=== PATIENT | male | born 1980 | race African-American/Black ===

== ENCOUNTER 2017-01-12 13:21 | Emergency (ER) | payer SELFPAY ==
[~2017-01-12] VITALS: Ht 180.3 cm; Wt 80.0 kg
[2017-01-12 13:30] VITALS: BP 118/61; PULSE 94; RESP 15; TEMP 98.3; O2SAT 99
--- NOTE | 2017-01-12 14:54 | PD ---
HPI Chief Complaint: Skin Problem Time Seen by Provider: 14:53 Travel History International Travel<30 days: No Contact w/Intl Traveler<30days: No Traveled to known affect area: No History of Present Illness HPI 36-year-old Afro-[place] male presents the emergency department with tender erythematous somewhat indurated area to the left anterior thigh. 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 Since gotten progressively more tender, erythematous, and warm. The pain is so bad now has difficulty walking. Was described as a 8/10. There is no drainage , fever, chills, or other symptoms. He has no known drug allergies. No history of MRSA in the past. PFSH Past Surgical History Tonsillectomy: Yes (as a child) Social History Alcohol Use: No Tobacco Use: No Substance Use: No Allergies-Medications (Allergen,Severity, Reaction): Coded Allergies: No Known Allergies (Unverified , 01/12/17) Reported Meds & Prescriptions Reported Meds & Active Scripts Active No Active Prescriptions or Reported Medications Review of Systems Except as stated in HPI: all other systems reviewed are Neg General / Constitutional: Positive: Chills, No: Fever Eyes: No: Visual changes HENT: No: Headaches Cardiovascular: No: Chest Pain or Discomfort Respiratory: No: Shortness of Breath Gastrointestinal: No: Abdominal Pain Genitourinary: No: Dysuria Musculoskeletal: No: Pain Skin: Positive Lesions, No Rash Neurologic: No: Weakness Psychiatric: No: Depression Endocrine: No: Polydipsia Hematologic/Lymphatic: No: Easy Bruising Physical Exam Narrative GENERAL: Patient appears in mild distress. SKIN: Warm and dry. Color. Normal turgor. Patient has an area approximately 3 cm diameter of erythema and localized redness and induration. There is no obvious sign of deep abscess or necrotizing fasciitis. There is no streaking or lymphangitis. HEAD: Atraumatic. Normocephalic. EYES: Pupils equal and round. No scleral icterus. No injection or drainage. ENT: No nasal bleeding or discharge. Mucous membranes pink and moist. Pharynx is clear. Airway is patent. NECK: Trachea midline. Supple nontender CARDIOVASCULAR: Regular rate and rhythm. RESPIRATORY: No accessory muscle use. Clear to auscultation. Breath sounds equal bilaterally. MUSCULOSKELETAL: Extremities without clubbing, cyanosis, or edema. No obvious deformities. NEUROLOGICAL: Awake and alert. No obvious cranial nerve deficits. Motor grossly within normal limits. Five out of 5 muscle strength in the arms and legs. Normal speech. PSYCHIATRIC: Appropriate mood and affect; insight and judgment normal. Data Data Last Documented VS Vital Signs Date Time Temp Pulse Resp B/P Pulse Ox O2 Delivery O2 Flow Rate FiO2 01/12/17 13:30 98.3 94 15 118/61 99 Orders Ed Poc Ultrasound (01/12/17 ) Sodium Chloride 0.9% Flush (Ns Flush) (01/12/17 15:00) Ketorolac Inj (Toradol Inj) (01/12/17 15:00) Sulfamet-Trimeth Ds 800-160 Mg (Bactrim (01/12/17 15:00) Ondansetron Inj (Zofran Inj) (01/12/17 15:00) Ketorolac Inj (Toradol Inj) (01/12/17 15:15) Cephalexin (Keflex) (01/12/17 15:15) MDM Medical Decision Making Medical Screen Exam Complete: Yes Emergency Medical Condition: Yes Differential Diagnosis Insect bite. Cellulitis. Allergic reaction. Narrative Course Patient is medically stable at time of exam. Patient is discussed with Dr. Penn and he performs a POC ultrasound was performed on the area showing no obvious abscess or deep tissue infection. Patient is given 60 mg Toradol IM. Patient is given his first dose of Bactrim DS by mouth as well as Keflex 500 mg by mouth. Patient will be continued on Bactrim DS twice a day 7 days as well as Keflex 500 mg 3 times a day 7 days. Patient also given ibuprofen 800 mg 3 times daily with food. Patient can take Tylenol as well as needed. Patient follow with primary care follow-up here if symptoms worsen. Diagnosis Primary Impression: Insect bite of thigh with local reaction Qualified Code: S70.362A - Insect bite of left thigh with local reaction, initial encounter Additional Impression: Insect bite of thigh, left, infected Qualified Code: S70.362A - Infected insect bite of left thigh, initial encounter Referrals: [facility] Primary Care Physician Patient Instructions: Cellulitis (ED), General Instructions, Insect Bite or Sting (ED) Additional Instructions: Patient is given 60 mg Toradol IM. Patient is given his first dose of Bactrim DS by mouth as well as Keflex 500 mg by mouth. Patient will be continued on Bactrim DS twice a day 7 days as well as Keflex 500 mg 3 times a day 7 days. Patient also given ibuprofen 800 mg 3 times daily with food. Patient can take Tylenol as well as needed. Patient follow with primary care follow-up here if symptoms worsen. Med/Other Pt SpecificInfo: Prescription(s) given Scripts Ibuprofen 800 Mg [id number] Mg PO Q8H PRN (Pain/Inflammation) #30 TAB Prov:Martinez Penn MD 01/12/17 Sulfamethoxazole-Trimethoprim (Bactrim DS)800-160 Mg Tab1 Tab PO BID #14 TAB Prov:Martinez Penn MD 01/12/17 Cephalexin (Keflex)500 Mg [id number] Mg PO Q8H #21 CAP Prov:Martinez Penn MD 01/12/17 Disposition: 01 DISCHARGE HOME Condition: Stable Paulo Son Jan 12, 2017 14:54
[2017-01-12] MEDS ORDERED: KETOROLAC TROMETHAMINE 30 MG/ML (IVP) VIAL IVP ONE (15:00)
[2017-01-12] MEDS ORDERED: SULFAMETHOXAZOLE-TRIMETHOPRIM DS 800-160 MG TAB PO ONE (15:00)
[2017-01-12] MEDS ORDERED: ONDANSETRON HCL 4 MG/2 ML VIAL IV PUSH ONE (15:00)
[2017-01-12] MEDS ORDERED: SODIUM CHLORIDE 0.9% FLUSH 10 ML FLUSH IV FLUSH PRN (15:00)
[2017-01-12] MEDS ORDERED: IBUP800T23 PO (15:13)
[2017-01-12] MEDS ORDERED: CEPH-460 PO (15:13)
[2017-01-12] MEDS ORDERED: BACT800T5 PO (15:13)
[2017-01-12] MEDS ORDERED: KETOROLAC TROMETHAMINE 60 MG/2 ML (IM) VIAL IM ONE (15:15)
[2017-01-12] MEDS ORDERED: CEPHALEXIN MONOHYDRATE 500 MG CAP PO ONE (15:15)
--- NOTE | 2017-01-12 15:16 | PD ---
Data Data Last Documented VS Vital Signs Date Time Temp Pulse Resp B/P Pulse Ox O2 Delivery O2 Flow Rate FiO2 01/12/17 13:30 98.3 94 15 118/61 99 Orders Ed Poc Ultrasound (01/12/17 ) Sodium Chloride 0.9% Flush (Ns Flush) (01/12/17 15:00) Ketorolac Inj (Toradol Inj) (01/12/17 15:00) Sulfamet-Trimeth Ds 800-160 Mg (Bactrim (01/12/17 15:00) Ondansetron Inj (Zofran Inj) (01/12/17 15:00) Ketorolac Inj (Toradol Inj) (01/12/17 15:15) Cephalexin (Keflex) (01/12/17 15:15) MDM Supervised Visit with JENNYFER: Yes Narrative Course The history, exam, and medical decision-making in the associated mid-level provider note were completed with my assistance. I reviewed and agree with the findings presented. I attest that I had a [id number] encounter with the patient on the same day, and personally performed and documented my assessment and findings in the medical record. *My assessment and Findings: 36-year-old man with pain redness swelling on his left inner thigh for the past several days. She relates it to doing yard work and some tall grass. Medullary erythema is really pretty mild. He complains of a lot of pain and some chills in that same area. I examine earring ultrasound there is some edema but no fluctuant fluid collections. He looks well. There is no crepitus or evidence of severe necrotizing soft tissue infection. Amount of erythema is very little and pretty faint. I suspect this may be more of a bite given the amount of pain and inflammation his experience. He states he's had some subjective chills. He has no fever or significant tachycardia here. He looks very stable. He does not appear septic. We'll give him a dose of parenteral antibiotics, continue outpatient antibiotics, will also marked the area. Scripts Ibuprofen 800 Mg [id number] Mg PO Q8H PRN (Pain/Inflammation) #30 TAB Prov:Martinez Penn MD 01/12/17 Sulfamethoxazole-Trimethoprim (Bactrim DS)800-160 Mg Tab1 Tab PO BID #14 TAB Prov:Martinez Penn MD 01/12/17 Cephalexin (Keflex)500 Mg [id number] Mg PO Q8H #21 CAP Prov:Martinez Penn MD 01/12/17 Martinez Penn MD Jan 12, 2017 15:16
[2017-01-12] MEDS ORDERED: CLINDAMYCIN PHOS 600 MG/4 ML VIAL IM ONE (15:30)
== END 2017-01-12 16:09 | disposition home or self-care (01) ==
LOC: NEPD 13:21
DX: S70.362A Insect bite (nonvenomous), left thigh, initial encounter (principal); W57.XXXA Bitten or stung by nonvenomous insect and other nonvenomous arthropods, initial encounter
CPT/HCPCS: 96372; 96374; 99285; J1885

== ENCOUNTER 2017-01-15 20:45 | Inpatient (IN) | payer SELFPAY ==
[~2017-01-15] VITALS: Ht 180.3 cm; Wt 78.2 kg
[~2017-01-15 20:45] MED LIST: BACT800T5 PO; CEPH-460 PO; IBUP800T23 PO
[2017-01-15 20:46] VITALS: BP 128/79; PULSE 90; RESP 16; TEMP 99.4; O2SAT 100
--- NOTE | 2017-01-15 20:48 | PD ---
Physical Exam Date Seen by Provider: Jan 15, 2017 Time Seen by Provider: 20:47 Narrative 36 yo male here for wound recheck. Has an insect bite to the left upper leg and was seen here and given antibiotics. Per patient worsening. Compliant per patient. Vitals are stable in triage. Awaiting Bed placement. Data Data Last Documented VS Vital Signs Date Time Temp Pulse Resp B/P Pulse Ox O2 Delivery O2 Flow Rate FiO2 01/15/17 20:46 99.4 90 16 128/79 100 Room Air [facility] Medical Record Reviewed: Yes Supervised Visit with JENNYFER: No Otto Krause Jan 15, 2017 20:48
[2017-01-15] MEDS ORDERED: TETANUS/DIPHTHERIA TOXOID ADULT 0.5 ML VIAL IM ONE (21:15)
[2017-01-15] MEDS ORDERED: CLINDAMYCIN INJ 900 MG in SODIUM CHLORIDE 0.9% INJ 100 ML IV ONE (21:15)
[2017-01-15 21:20] VITALS: BP 123/65; PULSE 87; RESP 18; O2SAT 100
--- NOTE | 2017-01-15 21:26 | PD ---
HPI Chief Complaint: Skin Problem Time Seen by Provider: 21:00 Travel History International Travel<30 days: No Contact w/Intl Traveler<30days: No Traveled to known affect area: No History of Present Illness HPI Patient comes in complaining of continued left leg pain and infection. Patient states he was seen here 3 days ago got a prescription for antibiotics and ibuprofen. Patient states he's been taking this, but symptoms are not getting any better feels is getting worse. Pain is worse with walking. Patient states he's been applying ice as he was instructed that since make the symptoms worse. Pain radiates proximally and distally in his left thigh. Pain is stabbing burning pain. Patient uncertain of his last tetanus shot. PFSH Past Medical History Medical History: Denies Significant Hx Past Surgical History Tonsillectomy: Yes (as a child) Social History Alcohol Use: No Tobacco Use: Yes (2 pk a day) Substance Use: No Allergies-Medications (Allergen,Severity, Reaction): Coded Allergies: No Known Allergies (Unverified , 01/15/17) Reported Meds & Prescriptions Reported Meds & Active Scripts Active Ibuprofen 800 Mg Tab 800 Mg PO Q8H PRN Bactrim DS (Sulfamethoxazole-Trimethoprim) 800-160 Mg Tab 1 Tab PO BID Keflex (Cephalexin) 500 Mg Cap 500 Mg PO Q8H Review of Systems Except as stated in HPI: all other systems reviewed are Neg Physical Exam Narrative GENERAL: Well-developed, well nourished, in no acute distress, and non-ill appearing. SKIN: Area of erythematous left medial thigh distally approximately 10 cm in total length. It is febrile and tender to palpation. There is no fluctuation or crepitus. HEAD: Atraumatic. Normocephalic. EYES: Pupils equal and round. EOMI. No scleral icterus. No injection or drainage. ENT: No nasal bleeding or discharge. Mucous membranes pink and moist. NECK: Trachea midline. Supple. No nuclear rigidity. RESPIRATORY: No accessory muscle use. No respiratory distress. MUSCULOSKELETAL: No obvious deformities. No clubbing. No cyanosis. No edema. Full range of motion. Patient ambulates favoring his left leg. NEUROLOGICAL: Awake and alert. No obvious cranial nerve deficits. Motor grossly within normal limits. Normal speech. PSYCHIATRIC: Appropriate mood and affect; insight and judgment normal. Data Data Last Documented VS Vital Signs Date Time Temp Pulse Resp B/P Pulse Ox O2 Delivery O2 Flow Rate FiO2 01/15/17 22:56 92 18 128/75 97 Room Air 01/15/17 20:46 99.4 Orders Basic Metabolic Panel (Bmp) (01/15/17 21:04) Complete Blood Count With Diff (01/15/17 21:04) Iv Access Insert/Monitor (01/15/17 21:04) Clindamycin Inj (Cleocin Inj) (01/15/17 21:15) Tetanus/Diphtheria Tox Adult (Tetanus/Di (01/15/17 21:15) Ecg Monitoring (01/15/17 21:04) Oximetry (01/15/17 21:04) Admit To Inpatient (01/15/17 ) Vital Signs (Adult) Q4H (01/15/17 22:53) Activity Oob With Assistance (01/15/17 22:53) Sodium Chloride 0.9% Flush (Ns Flush) (01/15/17 23:00) Sodium Chloride 0.9% Flush (Ns Flush) (01/16/17 09:00) Naloxone Inj (Narcan Inj) (01/15/17 23:00) Inpatient Certification (01/15/17 ) Clindamycin Inj (Cleocin Inj) (01/16/17 05:00) Admit Order (Ed Use Only) (01/15/17 22:55) Labs Laboratory Tests Test 01/15/17 21:10 White Blood Count 11.6 TH/MM3 Red Blood Count 3.47 MIL/MM3 Hemoglobin 10.8 GM/DL Hematocrit 31.5 % Mean Corpuscular Volume 90.6 FL Mean Corpuscular Hemoglobin 31.1 PG Mean Corpuscular Hemoglobin 34.3 % Concent Red Cell Distribution Width 14.1 % Platelet Count 215 TH/MM3 Mean Platelet Volume 8.3 FL Neutrophils (%) (Auto) 75.4 % Lymphocytes (%) (Auto) 17.7 % Monocytes (%) (Auto) 5.8 % Eosinophils (%) (Auto) 0.8 % Basophils (%) (Auto) 0.3 % Neutrophils # (Auto) 8.8 TH/MM3 Lymphocytes # (Auto) 2.1 TH/MM3 Monocytes # (Auto) 0.7 TH/MM3 Eosinophils # (Auto) 0.1 TH/MM3 Basophils # (Auto) 0.0 TH/MM3 CBC Comment DIFF FINAL Differential Comment Sodium Level 141 MEQ/L Potassium Level 3.8 MEQ/L Chloride Level 105 MEQ/L Carbon Dioxide Level 30.3 MEQ/L Anion Gap 6 MEQ/L Blood Urea Nitrogen 6 MG/DL Creatinine 1.10 MG/DL Estimat Glomerular Filtration 93 ML/MIN Rate Random Glucose 89 MG/DL Calcium Level 8.3 MG/DL MDM Medical Decision Making Medical Screen Exam Complete: Yes Emergency Medical Condition: Yes Differential Diagnosis Abscess, cellulitis, failed outpatient therapy, necrotizing fasciitis, gangrene , other Narrative Course Patient was seen and examined. IV was established. Initial laboratory studies were ordered. Patient given a dose of clindamycin. Labs were reviewed. Discussed patient with Dr. Kovacs who saw and evaluated patient and is in agreement with plan of care and disposition. Discussed all findings and plan care of patient, who is agreeable for admission. All questions were answered. Discussed patient with hospitalist who is agreeable to admit the patient. Physician Communication Physician Communication [id number] Nicholas, who is agreeable to admit the patient. Diagnosis Primary Impression: Cellulitis and abscess of left leg Additional Impression: Failure of outpatient treatment Admitting Information Admitting Physician Requests: Observation Condition: Stable Lane Jean-Baptiste Jan 15, 2017 21:26
[2017-01-15 22:05] LABS: AUTOMATED NEUTROPHIL # 8.8 TH/MM3 (1.8-7.7); BASOPHIL % 0.3 % (0.0-2.0); EOSINOPHIL # 0.1 TH/MM3 (0-0.4); EOSINOPHIL % 0.8 % (0.0-4.0); HEMATOCRIT 31.5 % (39.0-51.0); HEMO FLAGS DIFF FINAL; LYMPH % 17.7 % (9.0-44.0); LYMPHOCYTE # 2.1 TH/MM3 (1.0-4.8); MEAN CELL VOLUME 90.6 FL (80.0-100.0); MEAN CORPUSCULAR HEMOGLOBIN 31.1 PG (27.0-34.0); MEAN CORPUSCULAR HGB CONC 34.3 % (32.0-36.0); MONO % 5.8 % (0.0-8.0); NEUT % 75.4 % (16.0-70.0); PLATELET COUNT 215 TH/MM3 (150-450); RED BLOOD COUNT 3.47 MIL/MM3 (4.50-5.90); RED CELL DISTRIBUTION WIDTH 14.1 % (11.6-17.2); WHITE BLOOD COUNT 11.6 TH/MM3 (4.0-11.0)
[2017-01-15 22:24] LABS: BICARBONATE 30.3 MEQ/L (21.0-32.0); POTASSIUM 3.8 MEQ/L (3.5-5.1)
[2017-01-15 22:27] VITALS: BP 128/80; PULSE 86; RESP 18; O2SAT 100
[2017-01-15 22:56] VITALS: BP 128/75; PULSE 92; RESP 18; O2SAT 97
[2017-01-15] MEDS ORDERED: SODIUM CHLORIDE 0.9% FLUSH 10 ML FLUSH IV FLUSH PRN (23:00)
[2017-01-15] MEDS ORDERED: NALOXONE HCL 0.4 MG/ML AMP IV PRN (23:00)
[2017-01-15 23:36] VITALS: BP 136/87; PULSE 79; RESP 18; O2SAT 100
[2017-01-16 01:27] VITALS: BP 125/63; PULSE 96; RESP 18; TEMP 98.5; O2SAT 99
[2017-01-16] MEDS ORDERED: ACETAMINOPHEN/HYDROcodone 325 MG/5 MG TAB PO ONE ×2 (03:45)
[2017-01-16] MEDS: CLINDAMYCIN INJ 900 MG in SODIUM CHLORIDE 0.9% INJ 100 ML IV SCH ×4 (04:19→23:25)
[2017-01-16 04:41] VITALS: BP 113/65; PULSE 73; RESP 17; TEMP 98; O2SAT 100
[2017-01-16 07:16] VITALS: BP 115/69; PULSE 69; RESP 16; TEMP 98.1; O2SAT 99
[2017-01-16] MEDS: SODIUM CHLORIDE 0.9% FLUSH 10 ML FLUSH IV FLUSH SCH ×2 (09:10→23:25)
[2017-01-16] MEDS ORDERED: ACETAMINOPHEN 325 MG TAB PO PRN (10:45)
[2017-01-16] MEDS ORDERED: ONDANSETRON HCL 4 MG/2 ML VIAL IVP PRN (10:45)
[2017-01-16] MEDS ORDERED: ACETAMINOPHEN/HYDROcodone 325 MG/5 MG TAB PO PRN (10:45)
[2017-01-16] MEDS ORDERED: ACETAMINOPHEN/HYDROcodone 325 MG/7.5 MG TAB PO PRN (10:45)
[2017-01-16 11:41] VITALS: BP 123/78; PULSE 85; RESP 16; TEMP 98.4; O2SAT 100
--- NOTE | 2017-01-16 11:55 | HHI.HP ---
[facility] No Primary Care Physician Admission Diagnosis cellulitis, failed outpatient therapy Diagnoses: Chief Complaint: left leg infection Travel History International Travel<30 Days: No Contact w/Intl Traveler <30 Da: No Traveled to Known Affected Are: No History of Present Illness Written by Briana Yanes, acting as scribe for Dr. Jackson on 01/16/17 at 11: 51. 36-year-old male with history of tobacco use presents with a 6-day history of left leg swelling, pain, erythema. The patient reports initially this past Wednesday 01/10 he was outside weed-eating when he felt something hit his leg. Denies seeing any insect or bite. Later that night he noticed worsening diffuse swelling and pain throughout the left anterior thigh. He also reports subjective fevers since Friday but has not checked his temperature. Denies ever noticing any pimple or drainage. He does not shave his legs. Thursday 01/11 it was more difficult for him to walk therefore he rested all day without any relief. He then presented to the ER on Friday 01/12, bedside U/S negative for fluid collection, cellulitis borders were marked, received IM Clinda 600mg x1, and he was discharged on Keflex and Bactrim. He states he filled the medication that night and has been taking the medication over the past 3 days however the erythema/edema has spread beyond the previously marked borders therefore he decided to come back to the ER. He's also been taking the ibuprofen 800mg without any relief. He denies any chest pain, shortness of breath. He does report some nausea but no vomiting. Denies any other medical complaints at this time. Review of Systems Except as stated in HPI: all other systems reviewed are Neg Past Family Social History Past Medical History Denies any significant past medical history. Past Surgical History Tonsillectomy Reported Medications Ibuprofen 800 Mg Tab 800 Mg PO Q8H PRN Bactrim DS (Sulfamethoxazole-Trimethoprim) 800-160 Mg Tab 1 Tab PO BID Keflex (Cephalexin) 500 Mg Cap 500 Mg PO Q8H Allergies: Coded Allergies: No Known Allergies (Unverified , 01/15/17) Active Ordered Medications Current Medications Medications (Trade) Dose Ordered Sig/Temo Route Start Time Stop Time Status Last Admin (NS Flush) 2 ml UNSCH PRN IV FLUSH 01/15/17 23:00 (NS Flush) 2 ml BID IV FLUSH 01/16/17 09:00 01/16/17 09:10 Naloxone HCl 0.4 mg 0.4 mg UNSCH PRN IV 01/15/17 23:00 (Cleocin Inj/NS Inj) 106 ml @ 212 mls/hr Q6H IV 01/16/17 05:00 01/16/17 10:33 (Zofran Inj) 4 mg Q6H PRN IVP 01/16/17 10:45 (Tylenol) 650 mg Q6H PRN PO 01/16/17 10:45 ([place] 5-325 Mg) 1 tab Q4H PRN PO 01/16/17 10:45 ([place] 7.5-325 Mg) 1 tab Q4H PRN PO 01/16/17 10:45 (Habitrol 21 Mg Patch.24 Hr) 1 patch DAILY T-DERMAL 01/16/17 12:45 01/16/17 13:03 Miscellaneous Information 1 DAILY T-DERMAL 01/16/17 12:45 Family History Mother with hypertension Does not know most of his family history, came from "broken family" Social History Smokes tobacco since age 9, now smokes 1.5 PPD Prior heavy alcohol use, quit 3 years ago Very rare marijuana use, no other illicit drug use Works in [place] Physical Exam Vital Signs Vital Signs Date Time Temp Pulse Resp B/P Pulse Ox O2 Delivery O2 Flow Rate FiO2 01/16/17 11:41 98.4 85 16 123/78 100 01/16/17 07:16 98.1 69 16 115/69 99 01/16/17 04:41 98.0 73 17 113/65 100 01/16/17 01:27 98.5 96 18 125/63 99 01/15/17 23:36 79 18 136/87 100 Room Air 01/15/17 22:56 92 18 128/75 97 Room Air 01/15/17 22:27 86 18 128/80 100 Room Air 01/15/17 21:20 87 18 123/65 100 Room Air 01/15/17 20:46 99.4 90 16 128/79 100 Room Air Physical Exam GENERAL: Well-nourished, well-developed middle aged male patient in NAD. SKIN: Warm and dry. Left anteromedial thigh with diffuse erythema, edema, warmth , tender to palpation; no palpable fluid collection, no drainage. HEAD: Normocephalic. Atraumatic. EYES: Pupils equal and round. No scleral icterus. No injection or drainage. ENT: No nasal bleeding or discharge. Mucous membranes pink and moist. NECK: Supple. Trachea midline. CARDIOVASCULAR: Regular rate and rhythm. S1, S2 noted. No murmur appreciated. RESPIRATORY: No accessory muscle use. Clear to auscultation. Breath sounds equal bilaterally. GASTROINTESTINAL: Abdomen soft, non-tender, nondistended. Normoactive bowel sounds x4. MUSCULOSKELETAL: No obvious deformities. Extremities without clubbing, cyanosis , or edema. NEUROLOGICAL: Awake and alert. No obvious cranial nerve deficits. Motor grossly within normal limits. Normal speech. PSYCHIATRIC: Appropriate mood and affect; insight and judgment normal. Laboratory Laboratory Tests Test 01/15/17 21:10 White Blood Count 11.6 Red Blood Count 3.47 Hemoglobin 10.8 Hematocrit 31.5 Mean Corpuscular Volume 90.6 Mean Corpuscular Hemoglobin 31.1 Mean Corpuscular Hemoglobin 34.3 Concent Red Cell Distribution Width 14.1 Platelet Count 215 Mean Platelet Volume 8.3 Neutrophils (%) (Auto) 75.4 Lymphocytes (%) (Auto) 17.7 Monocytes (%) (Auto) 5.8 Eosinophils (%) (Auto) 0.8 Basophils (%) (Auto) 0.3 Neutrophils # (Auto) 8.8 Lymphocytes # (Auto) 2.1 Monocytes # (Auto) 0.7 Eosinophils # (Auto) 0.1 Basophils # (Auto) 0.0 CBC Comment DIFF FINAL Differential Comment Sodium Level 141 Potassium Level 3.8 Chloride Level 105 Carbon Dioxide Level 30.3 Anion Gap 6 Blood Urea Nitrogen 6 Creatinine 1.10 Estimat Glomerular Filtration 93 Rate Random Glucose 89 Calcium Level 8.3 Result Diagram: 01/15/17210901/15/172109 Imaging Last Impressions Lower Extremity Ultrasound 01/16/17 0000 Signed Impressions: Service Date/Time: January 12:33 - CONCLUSION: Normal examination. Jhoan Hawthorne MD Assessment and Plan Problem List: (1) Failure of outpatient treatment ICD Code: Z78.9 Status: Acute (2) Left leg cellulitis ICD Code: L03.116 Status: Acute Assessment and Plan 36-year-old male with history of tobacco use presents with a 6-day history of left leg swelling, pain, erythema. Left Leg Cellulitis, Failed Outpatient: Symptoms started 01/10, presented to ER 01/12, bedside U/S negative for fluid collection, received IM Clinda 600mg x1, discharged on Keflex and Bactrim; presents with worsening symptoms. -Afebrile, mild leukocytosis with WBC 11.6K -Imaging reviewed: Doppler U/S negative for DVT and Soft Tissue U/S negative for abscess -Continue antibiotics with IV Clinda -Pain control with [place] prn -Consult infectious disease for further recommendations Tobacco Use: smoking cigarettes since age 9, now smokes 1.5PPD -extensively counseled on cessation -give nicotine patch DVT Prophylaxis: teds/SCDs Discussed Condition With Patient, Patient's friend at bedside, RN Physician Certification 2 Midnight Certification Type: Admission for Inpatient Services Order for Inpatient Services The services are ordered in accordance with Medicare regulations or non- Medicare payer requirements, as applicable. In the case of services not specified as inpatient-only, they are appropriately provided as inpatient services in accordance with the 2-midnight benchmark. Estimated LOS (days): 3 days is the estimated time the patient will need to remain in the hospital, assuming treatment plan goals are met and no additional complications. Post-Hospital Plan: Home Medical Decision Making MDM Remarks This note was transcribed by scribe [Briana Yanes]. I, Dr. Kwaku Jackson personally performed the history, physical exam, and medical decision making; and confirmed the accuracy of the information in the transcribed note. Authenticated by Dr. Kwaku Jackson on 01/16/17 at 15:11. Briana Yanes PA-C Jan 16, 2017 11:55 Kwaku Jackson MD Jan 16, 2017 15:11
[2017-01-16] MEDS ORDERED: REMOVE OLD PATCH T-DERMAL SCH (12:45)
--- NOTE | 2017-01-16 13:02 | RADRPT ---
EXAM DATE/TIME: 01/16/2017 12:46 [facility] COMPARISON: No previous studies available for comparison. INDICATIONS : Abscess. MEDICAL HISTORY : Left leg abscess. SURGICAL HISTORY : Tonsillectomy. ENCOUNTER: Initial ACUITY: 2 weeks PAIN SCORE: 2/10 LOCATION: Left thigh. AREA EVALUATED: Left thigh FINDINGS: MASSES: None. FLUID COLLECTIONS: None. OTHER: Negative. CONCLUSION: No focal mass or collection Jhoan Hawthorne MD on January 16, 2017 at 13:01 Board Certified Radiologist. This report was verified electronically.
[2017-01-16] MEDS: NICOTINE 21 MG/24 HR PATCH T-DERMAL SCH (13:03)
--- NOTE | 2017-01-16 13:04 | RADRPT ---
EXAM DATE/TIME: 01/16/2017 12:33 [facility] COMPARISON: No previous studies available for comparison. INDICATIONS : Left leg redness and swelling. MEDICAL HISTORY : Left leg abscess. SURGICAL HISTORY : Tonsillectomy. ENCOUNTER: Initial ACUITY: 1 day PAIN SCORE: 06/18 LOCATION: Left leg. TECHNIQUE: Venous ultrasound of the leg was performed from the inguinal ligament to the proximal calf. Real-claudine e, color Doppler and spectral tracing, compression and augmentation techniques were used. FINDINGS: There is normal compressibility of the deep venous system from the inguinal region to the proximal ca lf. No echogenic clot is seen in the lumen of the common femoral, femoral, popliteal, and posterior tibial veins. There is a normal response of the venous system to proximal and distal augmentation an d respiration. CONCLUSION: Normal examination. Jhoan Hawthoren MD on January 16, 2017 at 13:03 Board Certified Radiologist. This report was verified electronically.
--- NOTE | 2017-01-16 14:58 | PD.ID.CON ---
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 In fact he thinks his pain got waorse HJe was admitted yday and placed on Clindamycin He is afebrile and his WBC is 11 K Review of Systems Constitutional: COMPLAINS OF: Fever, Chills Except as stated in HPI: all other systems reviewed are Neg Past Family Social History Allergies: Coded Allergies: No Known Allergies (Unverified , 01/15/17) Past Medical History none Past Surgical History none Active Ordered Medications Medications where reviewed in EMR Antibiotics Include: clinda iv 900 q 6 Family History reviewed Non-Contributory. Social History + tobacco. No ETOH. No Illicit Drugs. Physical Exam Vital Signs Vital Signs Date Time Temp Pulse Resp B/P Pulse Ox O2 Delivery O2 Flow Rate FiO2 01/16/17 11:41 98.4 85 16 123/78 100 01/16/17 07:16 98.1 69 16 115/69 99 01/16/17 04:41 98.0 73 17 113/65 100 01/16/17 01:27 98.5 96 18 125/63 99 01/15/17 23:36 79 18 136/87 100 Room Air 01/15/17 22:56 92 18 128/75 97 Room Air 01/15/17 22:27 86 18 128/80 100 Room Air 01/15/17 21:20 87 18 123/65 100 Room Air 01/15/17 20:46 99.4 90 16 128/79 100 Room Air Physical Exam CONSTITUTIONAL/GENERAL: This is an adequately nourished patient, in no apparent distress. TUBES/LINES/DRAINS: SKIN: No jaundice, rashes, or lesions. Skin temperature appropriate. Not diaphoretic. HEAD: Atraumatic. Normocephalic. EYES: Pupils equal and round and reactive. Extraocular motions intact. No scleral icterus. No injection or drainage. Fundi not examined. ENT: Hearing grossly normal. Nose without bleeding or purulent drainage. Oral mucosae without visible erythema, exudates, masses, or lesions. dentition n good condition NECK: Trachea midline. Supple, nontender. CARDIOVASCULAR: Regular rate and rhythm without murmurs, gallops, or rubs. No JVD. Peripheral pulses symmetric. RESPIRATORY/CHEST: Symmetric, unlabored respirations. Clear to auscultation. Breath sounds equal bilaterally. No wheezes, rales, or rhonchi. GASTROINTESTINAL: Abdomen soft, non-tender, nondistended. No hepato-splenomegaly , or palpable masses. No guarding. Bowel sounds present. MUSCULOSKELETAL: Extremities without clubbing, cyanosis, or edema. No joint tenderness or effusion noted. No calf tenderness. No mottling or clubbing. STATUS LOCLALIS; ill defined edema, erythema involving L inner thigh No induaration or fluctuance Compartment s are sof No obvous port of entry + tender slightly enlarged L inguinal lyumph nodules LYMPHATICS: No palpable cervical axailla supraclavicular or R inguinal adenopathy. + tender slightly enlarged L inguinal lyumph nodules NEUROLOGICAL: Awake and alert. Motor and sensory grossly within normal limits. Follows commands. Clear speech. Moves all extremities. PSYCHIATRIC: No obvious anxiety/depression. no apparent hallucinations or other psychotic thought process. Laboratory Laboratory Tests Test 01/15/17 21:10 White Blood Count 11.6 Red Blood Count 3.47 Hemoglobin 10.8 Hematocrit 31.5 Mean Corpuscular Volume 90.6 Mean Corpuscular Hemoglobin 31.1 Mean Corpuscular Hemoglobin 34.3 Concent Red Cell Distribution Width 14.1 Platelet Count 215 Mean Platelet Volume 8.3 Neutrophils (%) (Auto) 75.4 Lymphocytes (%) (Auto) 17.7 Monocytes (%) (Auto) 5.8 Eosinophils (%) (Auto) 0.8 Basophils (%) (Auto) 0.3 Neutrophils # (Auto) 8.8 Lymphocytes # (Auto) 2.1 Monocytes # (Auto) 0.7 Eosinophils # (Auto) 0.1 Basophils # (Auto) 0.0 CBC Comment DIFF FINAL Differential Comment Sodium Level 141 Potassium Level 3.8 Chloride Level 105 Carbon Dioxide Level 30.3 Anion Gap 6 Blood Urea Nitrogen 6 Creatinine 1.10 Estimat Glomerular Filtration 93 Rate Random Glucose 89 Calcium Level 8.3 Result Diagram: 01/15/17210901/15/172109 Imaging Last Impressions Lower Extremity Ultrasound 01/16/17 0000 Signed Impressions: Service Date/Time: January 12:33 - CONCLUSION: Normal examination. Jhoan Hawthorne MD Assessment and Plan Assessment and Plan L thigh cellulitis following presumed bug bite No e/o systemic symptoms failed oral abx No open wounds or clincial e/o fluid collections - cont clindamycin for now - add cefazoline - will need imaging studies if worse Ximena Loredo MD Jan 16, 2017 14:58
[2017-01-16 15:36] VITALS: BP 135/85; PULSE 88; RESP 17; TEMP 98.8; O2SAT 96
[2017-01-16 17:54] LABS: AUTOMATED NEUTROPHIL # 4.8 TH/MM3 (1.8-7.7); BASOPHIL % 0.2 % (0.0-2.0); EOSINOPHIL # 0.1 TH/MM3 (0-0.4); EOSINOPHIL % 1.4 % (0.0-4.0); HEMO FLAGS DIFF FINAL; LYMPH % 26.2 % (9.0-44.0); MEAN CELL VOLUME 89.9 FL (80.0-100.0); MEAN CORPUSCULAR HEMOGLOBIN 31.2 PG (27.0-34.0); MEAN CORPUSCULAR HGB CONC 34.7 % (32.0-36.0); MONO % 9.1 % (0.0-8.0); NEUT % 63.1 % (16.0-70.0); PLATELET COUNT 238 TH/MM3 (150-450); RED BLOOD COUNT 3.56 MIL/MM3 (4.50-5.90); RED CELL DISTRIBUTION WIDTH 14.4 % (11.6-17.2); WHITE BLOOD COUNT 7.6 TH/MM3 (4.0-11.0)
[2017-01-16 18:11] LABS: BICARBONATE 28.4 MEQ/L (21.0-32.0); POTASSIUM 4.3 MEQ/L (3.5-5.1)
[2017-01-16] MEDS: ceFAZolin 2 GM PREMIX 50 ML IV SCH (18:43)
[2017-01-16 20:21] VITALS: BP 114/63; PULSE 73; RESP 16; TEMP 98.2; O2SAT 100
[2017-01-16] MEDS ORDERED: PROCHLORPERAZINE INJ 10 MG/2 ML VIAL IV PUSH ONE (22:45)
[2017-01-16] MEDS ORDERED: MELATONIN 5 MG TAB PO PRN (22:45)
[2017-01-17 00:47] VITALS: BP 108/59; PULSE 72; RESP 18; TEMP 98.7; O2SAT 99
[2017-01-17] MEDS: ceFAZolin 2 GM PREMIX 50 ML IV SCH ×2 (01:26→09:33)
[2017-01-17 02:30] VITALS: BP 128/82; PULSE 67; RESP 16; TEMP 97.7; O2SAT 99
[2017-01-17 04:45] VITALS: BP 129/85; PULSE 66; RESP 16; TEMP 97.6; O2SAT 99
[2017-01-17] MEDS: CLINDAMYCIN INJ 900 MG in SODIUM CHLORIDE 0.9% INJ 100 ML IV SCH ×2 (05:44→11:33)
[2017-01-17 08:04] VITALS: BP 115/68; PULSE 72; RESP 18; TEMP 97.9; O2SAT 99
[2017-01-17] MEDS: NICOTINE 21 MG/24 HR PATCH T-DERMAL SCH (09:39)
[2017-01-17] MEDS: SODIUM CHLORIDE 0.9% FLUSH 10 ML FLUSH IV FLUSH SCH (09:39)
[2017-01-17 12:04] VITALS: BP 115/62; PULSE 79; RESP 18; TEMP 98.4; O2SAT 99
[2017-01-17 16:04] VITALS: BP 120/79; PULSE 72; RESP 17; TEMP 97.9; O2SAT 96
[2017-01-17] MEDS ORDERED: CEPH-460 PO (16:15)
[2017-01-17] MEDS ORDERED: CLEO300C2 PO (16:15)
--- NOTE | 2017-01-17 16:54 | HHI.IDPN ---
Subjective Subjective Remarks Markedly improved pain swelling, redness resolved minimal tenderness when moves his thigh no fever Antibiotics clinda ancef Allergies: Coded Allergies: No Known Allergies (Unverified , 01/15/17) Objective . Vital Signs Date Time Temp Pulse Resp B/P Pulse Ox O2 Delivery O2 Flow Rate FiO2 01/17/17 12:04 98.4 79 18 115/62 99 01/17/17 08:04 97.9 72 18 115/68 99 01/17/17 08:00 96 Room Air 01/17/17 04:45 97.6 66 16 129/85 99 01/17/17 02:30 97.7 67 16 128/82 99 01/17/17 00:47 98.7 72 18 108/59 99 01/16/17 20:21 98.2 73 16 114/63 100 01/16/17 01/16/17 01/17/17 15:00 23:00 07:00 Intake Total 850 ml 0 ml Output Total 0 ml Balance 850 ml 0 ml Intake Oral 850 ml 0 ml Output Urine Total 0 ml # Bowel Movements 3 0 . Laboratory Tests Test 01/15/17 01/16/17 21:10 17:15 White Blood Count 11.6 TH/MM3 7.6 TH/MM3 Red Blood Count 3.47 MIL/MM3 3.56 MIL/MM3 Hemoglobin 10.8 GM/DL 11.1 GM/DL Hematocrit 31.5 % 32.0 % Mean Corpuscular Volume 90.6 FL 89.9 FL Mean Corpuscular Hemoglobin 31.1 PG 31.2 PG Mean Corpuscular Hemoglobin 34.3 % 34.7 % Concent Red Cell Distribution Width 14.1 % 14.4 % Platelet Count 215 TH/MM3 238 TH/MM3 Mean Platelet Volume 8.3 FL 7.7 FL Neutrophils (%) (Auto) 75.4 % 63.1 % Lymphocytes (%) (Auto) 17.7 % 26.2 % Monocytes (%) (Auto) 5.8 % 9.1 % Eosinophils (%) (Auto) 0.8 % 1.4 % Basophils (%) (Auto) 0.3 % 0.2 % Neutrophils # (Auto) 8.8 TH/MM3 4.8 TH/MM3 Lymphocytes # (Auto) 2.1 TH/MM3 2.0 TH/MM3 Monocytes # (Auto) 0.7 TH/MM3 0.7 TH/MM3 Eosinophils # (Auto) 0.1 TH/MM3 0.1 TH/MM3 Basophils # (Auto) 0.0 TH/MM3 0.0 TH/MM3 CBC Comment DIFF FINAL DIFF FINAL Differential Comment Laboratory Tests Test 01/15/17 01/16/17 21:10 17:15 Sodium Level 141 MEQ/L 138 MEQ/L Potassium Level 3.8 MEQ/L 4.3 MEQ/L Chloride Level 105 MEQ/L 103 MEQ/L Carbon Dioxide Level 30.3 MEQ/L 28.4 MEQ/L Anion Gap 6 MEQ/L 7 MEQ/L Blood Urea Nitrogen 6 MG/DL 9 MG/DL Creatinine 1.10 MG/DL 1.11 MG/DL Estimat Glomerular Filtration 93 ML/MIN 92 ML/MIN Rate Random Glucose 89 MG/DL 91 MG/DL Calcium Level 8.3 MG/DL 8.6 MG/DL Physical Exam NAD STATUS LOCALIS: complete resolution of edema, erythjema, induration and tendeness of previously present findings Assessment & Plan Remarks L thigh cellulitis following presumed bug bite, basically resolved No e/o systemic symptoms failed oral abx, but improved markedly on clindamycin No open wounds or clincial e/o fluid collections - cont clindamycin for 3 more days PO - OK to dc home dw Ximena Mosher MD Jan 17, 2017 16:54
--- NOTE | 2017-01-20 01:11 | HHI.DS ---
Discharge Summary Admission Date Jan 16, 2017 at 14:02 Discharge Date: Jan 17, 2017 Admitting Diagnosis cellulitis, failed outpatient therapy (1) Failure of outpatient treatment ICD Code: Z78.9 (2) Left leg cellulitis ICD Code: L03.116 Brief History - From Admission Written by Briana Yanes, acting as scribe for Dr. Jackson on 01/16/17 at 11: 51. 36-year-old male with history of tobacco use presents with a 6-day history of left leg swelling, pain, erythema. The patient reports initially this past Wednesday 01/10 he was outside weed-eating when he felt something hit his leg. Denies seeing any insect or bite. Later that night he noticed worsening diffuse swelling and pain throughout the left anterior thigh. He also reports subjective fevers since Friday but has not checked his temperature. Denies ever noticing any pimple or drainage. He does not shave his legs. Thursday 01/11 it was more difficult for him to walk therefore he rested all day without any relief. He then presented to the ER on Friday 01/12, bedside U/S negative for fluid collection, cellulitis borders were marked, received IM Clinda 600mg x1, and he was discharged on Keflex and Bactrim. He states he filled the medication that night and has been taking the medication over the past 3 days however the erythema/edema has spread beyond the previously marked borders therefore he decided to come back to the ER. He's also been taking the ibuprofen 800mg without any relief. He denies any chest pain, shortness of breath. He does report some nausea but no vomiting. Denies any other medical complaints at this time. CBC/BMP: 01/16/17 1715 01/16/17 1715 Pt update on day of discharge pain almost resolved. Hospital Course 36-year-old male with history of tobacco use presents with a 6-day history of left leg swelling, pain, erythema. Left Leg Cellulitis, Failed Outpatient: Symptoms started 01/10, presented to ER 01/12, bedside U/S negative for fluid collection, received IM Clinda 600mg x1, discharged on Keflex and Bactrim; presents with worsening symptoms. -Afebrile, mild leukocytosis with WBC 11.6K -Imaging reviewed: Doppler U/S negative for DVT and Soft Tissue U/S negative for abscess -Continue antibiotics with IV Clinda -Pain control with [place] prn -Consult infectious disease for further recommendations Tobacco Use: smoking cigarettes since age 9, now smokes 1.5PPD -extensively counseled on cessation -give nicotine patch DVT Prophylaxis: teds/SCDs Pt Condition on Discharge: Good Discharge Disposition: Discharge Home Discharge Time: <= 30 minutes Discharge Instructions DIET: Follow Instructions for: As Tolerated, No Restrictions Activities you can perform: Regular-No Restrictions Follow up Referrals: PCP Follow-up - 1 Week with Pamela Jacob MD New Medications: Cephalexin (Keflex) 500 Mg Cap 500 MG PO Q6H Infection Days 14 Ref 0 CAP Clindamycin (Cleocin) 300 Mg Cap 300 MG PO Q6H Infection Days 14 Ref 0 CAP Discontinued Medications: Cephalexin (Keflex) 500 Mg Cap 500 MG PO Q8H Infection #21 CAP Ibuprofen (Ibuprofen) 800 Mg Tab 800 MG PO Q8H PRN Pain/Inflammation #30 TAB Sulfamethoxazole-Trimethoprim (Bactrim DS) 800-160 Mg Tab 1 TAB PO BID Infection #14 TAB Kwaku Jackson MD Jan 20, 2017 01:11
== END 2017-01-17 16:58 | disposition home or self-care (01) | DRG 603 ==
LOC: NEPC 20:45 → NEDA 22:57 → NEPHCDU 01-16 01:14 → OBSVTOIN 01-16 14:02 → N04B 01-17 02:24
PROVIDERS: ADMIT Internal Medicine; ATTEND Internal Medicine
DX: L03.116 Cellulitis of left lower limb (principal); F17.210 Nicotine dependence, cigarettes, uncomplicated; W57.XXXA Bitten or stung by nonvenomous insect and other nonvenomous arthropods, initial encounter
CPT/HCPCS: 76882; 80048; 85025; 90471; 90714; 93971; 96374; G0378; J0690; J0780; J2405